=== PATIENT | male | born 1985 | race Caucasian/White ===

== ENCOUNTER 2017-04-13 22:14 | Emergency (ER) | payer OTHER ==
[~2017-04-13] VITALS: Ht 180.3 cm; Wt 95.3 kg
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
--- NOTE | 2017-04-13 22:19 | NUR ---
BLACK OLSON AT BS
--- NOTE | 2017-04-14 05:43 | NUR ---
Patient discharged to home in stable condition. Written and verbal after care instructions given. Patient verbalizes understanding of instruction. Patient is ambulatory with steady gait, accompanied by friend. No further complaints. vss. nad noted.
[2017-04-14 05:44] VITALS: BP 116/74
== END 2017-04-14 05:44 | disposition home or self-care (01) ==
LOC: ER 22:17
DX: F10.129 Alcohol abuse with intoxication, unspecified (principal); F12.90 Cannabis use, unspecified, uncomplicated
CPT/HCPCS: 99283; A4606; Z7610

== ENCOUNTER 2017-10-11 22:22 | Emergency (ER) | payer OTHER ==
[~2017-10-11] VITALS: Ht 172.7 cm; Wt 81.6 kg
[2017-10-11 22:25] VITALS: BP 148/98
--- NOTE | 2017-10-11 23:04 | NUR ---
PT UNABLE TO GIVE URINE SAMPLE AT THIS TIME. MADE AWARE. WILL TRY AGAIN AT A LATER TIME.
[2017-10-11 23:23] LABS: BASOPHILS % (AUTO) 0.3 % (0.0-2.0); EOSINOPHILS % (AUTO) 1.6 % (0.0-6.0); HEMATOCRIT 42 % (39-51); HEMOGLOBIN 14.1 g/dL (13.5-17.5); LYMPHOCYTES # (AUTO) 2.6 /CMM (0.8-4.8); LYMPHOCYTES % (AUTO) 31.6 % (20.0-44.0); MEAN CORPUSCULAR HGB CONC 34 g/dl (31.0-36.0); MEAN CORPUSCULAR VOLUME 86 fL (80-96); MONOCYTES # (AUTO) 0.4 /CMM (0.1-1.30); MONOCYTES % (AUTO) 5.5 % (2.0-12.0); PLATELET COUNT (AUTO) 171 /CMM (150-450); RDW COEFFICIENT OF VARIATION 13.8 (11.5-15.0); RED BLOOD CELL COUNT(AUTO) 4.85 MIL/uL (4.5-6.0); WHITE BLOOD COUNT (AUTO) 8.2 K/uL (4.3-11.0)
[2017-10-11 23:35] LABS: CREATININE 1.1 mg/dL (0.6-1.3)
[2017-10-11 23:41] LABS: ALBUMIN 4.1 g/dL (3.4-5.0); BILIRUBIN,DIRECT 0.1 mg/dL (0.0-0.2); BILIRUBIN,TOTAL 0.4 mg/dL (0.2-1.0); TOTAL PROTEIN, SERUM 7.7 g/dL (6.4-8.2)
[2017-10-11 23:43] LABS: SALICYLATE 1.3 mg/dL (2.8-20.0)
--- NOTE | 2017-10-12 00:23 | NUR ---
PT'S FAMILY MEMBER BEDSIDE WITH PT. Patient is resting comfortably in bed with eyes closed. Easily aroused. VSS
--- NOTE | 2017-10-12 01:45 | NUR ---
PT AOX4. PT NOTED WITH STEADY GAIT. DR. KHAN MADE AWARE. PER FAMILY MEMBER OKAY TO BRING PT HOME.
== END 2017-10-12 02:35 | disposition home or self-care (01) ==
LOC: ER 22:24
DX: F10.129 Alcohol abuse with intoxication, unspecified (principal)
CPT/HCPCS: 36415; 80048; 80076; 80329; 82962; 85025; 99284; A4606; G0480 ×2; Z7610

== ENCOUNTER 2017-10-14 00:56 | Emergency (ER) | payer OTHER ==
[~2017-10-14] VITALS: Ht 170.2 cm; Wt 74.8 kg
[2017-10-14 01:01] VITALS: BP 140/90
--- NOTE | 2017-10-14 03:15 | NUR ---
Patient is resting comfortably in bed with eyes closed. Easily aroused. VSS
--- NOTE | 2017-10-14 04:32 | NUR ---
Patient is resting comfortably in bed with eyes closed. Easily aroused. VSS
--- NOTE | 2017-10-14 05:24 | NUR ---
Patient discharged to home in stable condition. Written and verbal after care instructions given. Patient verbalizes understanding of instruction. VSS UPON DISCHARGE. PT AMBULATED WITH STEADY GAIT NOTED.
== END 2017-10-14 05:26 | disposition home or self-care (01) ==
LOC: ER 00:59
DX: F10.129 Alcohol abuse with intoxication, unspecified (principal); Z60.2 Problems related to living alone
CPT/HCPCS: 82962-TC; A4606; Z7610

== ENCOUNTER 2019-05-16 21:12 | Emergency (ER) | payer SELFPAY ==
[~2019-05-16] VITALS: Ht 175.3 cm; Wt 81.6 kg
[2019-05-16 22:54] LABS: APPEARANCE,URINE Cloudy (CLEAR); BILIRUBIN,URINE Negative (NEGATIVE); BLOOD, URINE Trace-intact Ery/uL (NEGATIVE); COLOR,URINE Yellow (YELLOW); KETONES,URINE Negative (NEGATIVE); LEUKOCYTE ESTERASE ,URINE Moderate (NEGATIVE); NITRITE, URINE Negative (NEGATIVE); PH,URINE 5.5 (5.0-8.0); PROTEIN,URINE Trace mg/dl (NEGATIVE); UGLUCOSE Negative (NEGATIVE)
[2019-05-16 23:01] LABS: BACTERIA,URINE 2+ /HPF (None Seen); SQUAMOUS EPITHELIAL CELL,UR Few /HPF (None Seen); WBC,URINE 21-50 /HPF (0-3)
[2019-05-17] MEDS ORDERED: AZITHROMYCIN 250 MG TABLET PO ONE
[2019-05-17] MEDS ORDERED: CEFTRIAXONE 500 MG VIAL IM ONE
[2019-05-17] MEDS ORDERED: CEFTRIAXONE 500 MG VIAL ONE (00:08)
[2019-05-17] MEDS ORDERED: AZITHROMYCIN 250 MG TABLET ONE (00:08)
[2019-05-17] MEDS ORDERED: LIDOCAINE /MPF 1% VIAL 5 ML VIAL ONE (00:10)
[2019-05-17 00:24] VITALS: BP 128/76
== END 2019-05-17 00:32 | disposition home or self-care (01) ==
LOC: ER 21:18
DX: N34.2 Other urethritis (principal); R36.9 Urethral discharge, unspecified; F17.200 Nicotine dependence, unspecified, uncomplicated; Z60.2 Problems related to living alone
CPT/HCPCS: 81001; 87086; 87491; 87591; 96372; 99283; J0696; J3490; 81000-TC

== ENCOUNTER 2019-07-06 15:08 | Emergency (ER) | payer SELFPAY ==
[~2019-07-06] VITALS: Ht 188 cm; Wt 99.8 kg
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
[2019-07-06] MEDS ORDERED: IV NS 0.9% 1,000 ML BAG IV ONE (16:00)
[2019-07-06 16:27] LABS: BASOPHILS % (AUTO) 0.5 % (0.0-2.0); EOSINOPHILS % (AUTO) 0.5 % (0.0-6.0); HEMATOCRIT 42 % (39-51); HEMOGLOBIN 13.9 g/dL (13.5-17.5); LYMPHOCYTES # (AUTO) 1.6 /CMM (0.8-4.8); LYMPHOCYTES % (AUTO) 16.6 % (20.0-44.0); MEAN CORPUSCULAR HGB CONC 33 g/dl (31.0-36.0); MEAN CORPUSCULAR VOLUME 90 fL (80-96); MONOCYTES # (AUTO) 0.7 /CMM (0.1-1.30); MONOCYTES % (AUTO) 7.5 % (2.0-12.0); NEUTROPHILS # (AUTO) 7.1 /CMM (1.8-8.9); NEUTROPHILS % (AUTO) 74.9 % (43.0-81.0); PLATELET COUNT (AUTO) 158 /CMM (150-450); WHITE BLOOD COUNT (AUTO) 9.5 K/uL (4.3-11.0)
[2019-07-06 16:33] LABS: CALCIUM, SERUM 8.9 mg/dL (8.5-10.1); CARBON DIOXIDE 25 mmol/L (21-32); CHLORIDE 105 mmol/L (98-107); CREATININE 1.3 mg/dL (0.6-1.3); GLUCOSE 111 mg/dL (74-106); POTASSIUM 3.8 mmol/L (3.5-5.1); SODIUM SERUM 141 mmol/L (136-145); UREA NITROGEN, BLOOD 14 mg/dL (7-18)
[2019-07-06 16:39] LABS: ALANINE AMINOTRANSFERASE 33 U/L (12-78); ALBUMIN 3.9 g/dL (3.4-5.0); ALKALINE PHOSPHATASE 53 U/L (46-116); ASPARTATE AMINOTRANSFERASE 30 U/L (15-37); BILIRUBIN,TOTAL 0.2 mg/dL (0.2-1.0); TOTAL PROTEIN, SERUM 7.2 g/dL (6.4-8.2)
[2019-07-06 20:00] VITALS: BP 126/90
--- NOTE | 2019-07-06 20:26 | NUR ---
URINE SENT LAB
[2019-07-06 21:01] LABS: APPEARANCE,URINE Clear (CLEAR); BILIRUBIN,URINE Negative (NEGATIVE); BLOOD, URINE Negative Ery/uL (NEGATIVE); COLOR,URINE Yellow (YELLOW); KETONES,URINE 15 (NEGATIVE); LEUKOCYTE ESTERASE ,URINE Negative (NEGATIVE); NITRITE, URINE Negative (NEGATIVE); PROTEIN,URINE Negative (NEGATIVE); UGLUCOSE Negative (NEGATIVE); UROBILINOGEN,URINE 0.2 EU/dL (0.2)
--- NOTE | 2019-07-06 23:23 | NUR ---
Patient discharged to home in stable condition. Written and verbal after care instructions given. Patient verbalizes understanding of instruction. IV removed. Catheter intact and site benign. Pressure and 4x4 applied to site. No bleeding noted.
== END 2019-07-06 23:25 | disposition home or self-care (01) ==
LOC: ER 15:10
DX: F10.229 Alcohol dependence with intoxication, unspecified (principal); F15.10 Other stimulant abuse, uncomplicated; R07.89 Other chest pain; N50.812 Left testicular pain; N50.3 Cyst of epididymis; F17.200 Nicotine dependence, unspecified, uncomplicated; Y90.3 Blood alcohol level of 60-79 mg/100 ml; Z60.2 Problems related to living alone
CPT/HCPCS: 36415; 71045-TC; 76870-TC; 80048-TC; 80076-TC; 81000-TC; 84484-TC; 85025-TC; 87491; 87591; G0480

== ENCOUNTER 2019-07-21 21:03 | Emergency (ER) | payer SELFPAY ==
[~2019-07-21] VITALS: Ht 172.7 cm; Wt 77.1 kg
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
--- NOTE | 2019-07-21 21:53 | NUR ---
pt to ct
--- NOTE | 2019-07-21 22:03 | NUR ---
pt back from ct, placed on bed 14, pt vss, -sob, wctm
--- NOTE | 2019-07-22 05:13 | NUR ---
PT AWAKE AND ALERT. AMBULATORY W. STEADY GAITS. PT MEDICALLY CLEAR FOR D/C. PT MADE A PHONE CALL TO HIS FAMILY OR FRIEND AND REQUESTED RIDE. Patient discharged to home in stable condition. Written and verbal after care instructions given. Patient verbalizes understanding of instruction and picked up all his belongings.
[2019-07-22 05:15] VITALS: BP 121/60
== END 2019-07-22 05:17 | disposition home or self-care (01) ==
LOC: ER 21:05
DX: S00.01XA Abrasion of scalp, initial encounter (principal); S09.8XXA Other specified injuries of head, initial encounter; F10.10 Alcohol abuse, uncomplicated; R41.82 Altered mental status, unspecified; Z60.2 Problems related to living alone; Y90.9 Presence of alcohol in blood, level not specified; W22.8XXA Striking against or struck by other objects, initial encounter; Y93.89 Activity, other specified; Y92.89 Other specified places as the place of occurrence of the external cause; Y99.8 Other external cause status
CPT/HCPCS: 70450-TC